=== PATIENT | male | born 1975 | race African-American/Black ===

== ENCOUNTER 2019-05-12 09:30 | Emergency (ER) | payer OTHER ==
[2019-05-12 09:47] VITALS: BP 210/117; PULSE 98; O2SAT 95
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
== END 2019-05-12 11:32 | disposition home or self-care (01) ==
LOC: ED 09:30
DX: Z03.89 Encounter for observation for other suspected diseases and conditions ruled out (principal); I10 Essential (primary) hypertension
CPT/HCPCS: 99283